=== PATIENT | male | born 1935 | race Caucasian/White ===

== ENCOUNTER → 2021-06-28 | Outpatient (CLI) | payer MEDICARE, BC ==
[2021-06-28 14:44] LABS: HEMATOCRIT 54.1 % (42.0-52.0); HEMOGLOBIN 18.8 g/dL (13.5-18.0)
== END ==
LOC: LAB 14:29
PROVIDERS: Family Medicine
DX: D58.2 Other hemoglobinopathies (principal)

== ENCOUNTER → 2021-06-30 | Outpatient (CLI) | payer MEDICARE, BC ==
[2021-06-30 10:54] LABS: HEMOGLOBIN 17.2 g/dL (13.5-18.0)
== END ==
LOC: LAB 09:24
PROVIDERS: Family Medicine
DX: D58.2 Other hemoglobinopathies (principal)